=== PATIENT | male | born 1985 | race Caucasian/White ===

== ENCOUNTER → 2018-11-06 09:25 | Outpatient (CLI) | payer OTHER, SELFPAY ==
--- NOTE | 2018-11-06 | DI.ECHO.S_ITS ---
[place] +---------+ [facility] +---------+ : : [address] : : : : [id number] : : : : Phone: [phone] Echocardiogram Report + + :Name: ZACHERY CRAIG Study Date: 11/06/2018 Height: 74 in : :[facility] Weight: 260 lb : : Gender: Male BSA: 2.4 m2 : :: 1985 Age: 33 yrs BP: 104/70 mmHg: :Reason For Study: IRREGULAR HEART BEAT : : Performed By: Johanna Porter : :Referring: HARSH STILES : + + Interpretation Summary The ejection fraction is estimated to be 50-55%. Left ventricular wall motion is normal. Both atria are normal in size. There is trace mitral regurgitation. There is a trace or physiologic amount of pulmonic regurgitation. There is a small color signal seen in the pulmonary artery during diastole which could represent a small PDA (image 30). Procedure: A two-dimensional transthoracic echocardiogram with color flow and Doppler was performed. The study quality was technically good. There is no prior echocardiogram noted for this patient. The patient was in sinus bradycardia with heart rates between 48-58 bpm during the exam. Left Ventricle: The left ventricle is normal in size. There is normal left ventricular wall thickness. There is no ventricular septal defect visualized. The ejection fraction is estimated to be 50-55%. Left ventricular wall motion is normal. Diastolic parameters suggest probable normal left ventricular diastolic function and normal filling pressures. Right Ventricle: The right ventricle is normal in size and function. Atria: Both atria are normal in size. There is no Doppler evidence for an interatrial shunt. Mitral Valve: The mitral valve is normal in structure and function. There is trace mitral regurgitation. Aortic Valve: The aortic valve is normal in structure and function. No aortic regurgitation is present. Tricuspid Valve: The tricuspid valve is normal in structure and function. There is a trace or physiologic amount of tricuspid regurgitation. Pulmonary artery pressures cannot be estimated because of the lack of a measurable TR jet velocity. Pulmonic Valve: The pulmonic valve is normal in structure and function. There is a trace or physiologic amount of pulmonic regurgitation. Great Vessels: The aortic root is normal size. The ascending aorta is normal in size. The aortic arch is normal in size. There is a small color signal seen in the pulmonary artery during diastole which could represent a small PDA (image 30). The IVC is of normal diameter and collapses greater than 50% with a sniff. This suggests a low right atrial pressure of 3 mm Hg. Pericardium/ Pleura There is no pericardial effusion. MMode/2D Measurements & Calculations LVIDd: 5.6 cm LVOT diam: 2.3 cm LVIDs: 4.1 cm Ao root diam: 3.3 cm FS: 25.8 % Aortic Jxn: 2.3 cm EPSS: 0.39 cm asc Aorta Diam: 2.8 cm IVSd: 0.84 cm Ao Arch Diam (Prox Trans): 2.9 cm LVPWd: 0.67 cm LV roy. diameter/BSA (cm/m^2): 2.3 LV sys. diameter/BSA (cm/m^2): 1.7 LA A2 area: 16.9 cm2 RA long axis: 4.8 cm LA A4 area: 21.9 cm2 RA area: 15.1 cm2 LA length (vol): 5.0 cm RA vol: 39.8 ml LA vol: 63.4 ml RA : 16.4 ml/m2 LA vol index: 26.1 ml/m2 IVC diam: 1.4 cm RVD2 (mid): 3.3 cm TAPSE: 2.0 cm Doppler Measurements & Calculations Ao V2 max: 110.3 cm/sec LVOT Max Bk: 88.9 cm/sec Ao V2 mean: 78.1 cm/sec LV V1 max P.2 mmHg Ao max P.9 mmHg LV V1 VTI: 18.6 cm Ao mean P.7 mmHg EJFF(I,D): 3.0 cm2 Ao V2 VTI: 26.0 cm JEFF(V,D): 3.4 cm2 sev ratio: 0.72 JEFF indexed to BSA (cm^2/m^2): 1.2 MV E max bk: 59.5 cm/sec PA V2 max: 77.2 cm/sec MV A max bk: 31.4 cm/sec PA V2 mean: 52.4 cm/sec MV E/A: 1.9 PA mean P.2 mmHg Med Peak E' Bk: 10.9 cm/sec PA Accel Time: 0.16 sec E/E' med: 5.4 Lat Peak E' Bk: 16.8 cm/sec E/E' lat: 3.5 E/e' average: 4.5 MV dec time: 0.22 sec MV P1/2t: 66.4 msec MV P1/2t max bk: 60.1 cm/sec SV(LVOT): 78.9 ml MVA(P1/2t): 3.3 cm2 Reading Physician:02:04 PM
== END ==
PROVIDERS: Visit Provider Physician Assistant
DX: I49.9 Cardiac arrhythmia, unspecified (principal)
CPT/HCPCS: 93306

== ENCOUNTER 2019-06-02 11:51 | Emergency (ER) | payer OTHER, SELFPAY ==
[2019-06-02 11:54] VITALS: BP 125/85; PULSE 85; RESP 22; TEMP 36.8; O2SAT 99; BMI 31.2
--- NOTE | 2019-06-02 12:35 | PC.NURSE ---
Door is open to palacio and lights are on in room. Pt is speaking with provider.
[2019-06-02 12:38] LABS: Bacteria Urine None Seen; RBC Urine None Seen (0-5/HPF)
[2019-06-02 12:42] LABS: Appearance Urine UA CLEAR; Bilirubin Urine UA NEGATIVE (NEGATIVE); Color Urine UA YELLOW; Glucose Urine UA NEGATIVE (Negative); Ketones Urine UA NEGATIVE (NEGATIVE); Leukocyte Esterase Urine UA NEGATIVE (NEGATIVE); Nitrite Urine UA NEGATIVE (Negative); Occult Blood Urine UA NEGATIVE (Negative); Protein Urine UA NEGATIVE (Negative); Specific Gravity Urine UA 1.015 (1.000-1.035); Urobilinogen Urine UA 0.2 E.U./dL (0.2)
[2019-06-02 12:42] LABS: Add Manual Diff / Slide Review NO; Basophils Absolute Auto 0 /uL (0-100); Basophils Percent Auto 0.7 % (0-2); Eosinophils Absolute Auto 300 /uL (0-450); Eosinophils Percent Auto 4.6 % (2-4); Hematocrit 40.9 % (41-53); Hemoglobin 14.1 g/dL (13.5-17.5); Lymphocytes Absolute Auto 2100 /uL (1100-4500); Lymphocytes Percent Auto 35.1 % (25-40); Mean Corpuscular HGB Conc 34.6 % (30-36); Mean Corpuscular Hemoglobin 30.3 PG (26-34); Mean Corpuscular Volume 87.6 fL (80-100); Monocytes Absolute Auto 500 /uL (0-900); Monocytes Percent Auto 8.8 % (3-14); Neutrophils Absolute Auto 3000 /uL (1500-7000); Neutrophils Percent Auto 50.8 % (50-75); Platelet Count 221 X10^3/uL (150-400); Red Blood Cell Count 4.66 X10^6/uL (4.5-5.9); Red Cell Distribution Width 13.5 % (11.6-14.8); White Blood Cell Count 5.9 X10^3/uL (4.5-11.0)
[2019-06-02 12:48] LABS: Culture Indicated Urine Cult Not Indicated; Squamous Epithelial Cell Urine 0-1 /HPF (0-5/HPF); WBC Urine 0-1/HPF (0-5/HPF)
[2019-06-02 12:49] LABS: Urine Amphetamines Negative (Negative); Urine Barbiturates Negative (Negative); Urine Benzodiazepines Negative (Negative); Urine Cocaine Negative (Negative); Urine MDMA Negative (Negative); Urine Methadone Negative (Negative); Urine Methamphetamines Negative (Negative); Urine Morphine/Opi cutoff 2000 Negative (Negative); Urine Oxycodone Negative (Negative); Urine Phencyclidine Negative (Negative); Urine Tetrahydrocannabinol Negative (Negative); Urine Tricyclic Antidepressant Negative (Negative)
[2019-06-02] MEDS: LORazepam 0.5 MG TABLET 1 MG PO ×2 (12:52→18:50)
[2019-06-02 13:00] LABS: Alanine Aminotransferase 51 IU/L (21-72); Albumin 4.5 g/dL (3.5-5.0); Albumin Globulin Ratio 1.7 (1.0-2.8); Alkaline Phosphatase 56 U/L (38-126); Aspartate Aminotransferase 27 IU/L (17-59); BUN Creatinine Ratio 12.5 (6-22); Bilirubin Total 0.4 mg/dL (0.2-1.3); Blood Urea Nitrogen 15 mg/dL (9-20); Calcium 9.4 mg/dL (8.4-10.2); Carbon Dioxide 24 mmol/L (22-32); Chloride 106 mmol/L (98-107); Estimated Glomerular Filt Rate > 60.0 mL/min (>60); Ethanol (ETOH) < 10 mg/dL; Globulin 2.7 g/dL (1.7-4.1); Glucose 105 mg/dL (70-100); HEMOLYSIS < 15 (0-50); Sodium 143 mmol/L (137-145); Total Protein 7.2 g/dL (6.3-8.2)
--- NOTE | 2019-06-02 13:00 | ED.PSYCH ---
HPI - Psych <MALACHI Kern - Last Filed: 06/02/19 19:36> General Chief Complaint: Psychiatric Symptoms Stated Complaint: SUICIDAL THOUGHTS Time Seen by Provider: 06/02/19 12:22 Source: patient Mode of arrival: ambulatory Limitations: no limitations History of Present Illness HPI Narrative: The patient is a 34-year-old male former smoker with history of PTSD who presents with a chief complaint of suicidal ideations. He states he is very stressed at home right now, with marital issues. He is also having a medical discharge from the [facility] 3 years early, which she states is due to his PTSD. He states he has history of suicidal ideations, and the previous cutting attempt. He states that today he took a kitchen knife and then threatened to hurt himself with it. He is concerned that he hurt his when he closed the door on her face. He denies any illicit drugs, marijuana or tobacco use. He states he is on several psychiatric medications, but is not exactly sure what he is taking. He states that rather than hurt himself today, he called his counselor who directed him to come to the emergency department. Related Data Home Medications Medication Instructions Recorded Confirmed naproxen sodium 220 mg PO PRN PRN #0 12/30/11 06/02/19 sertraline [Zoloft] 150 mg PO BEDTIME #2 11/11/17 06/02/19 omeprazole 20 mg PO DAILY #90 01/02/18 06/02/19 aspirin 325 mg PO DAILY 06/02/19 bupropion HCl 150 mg PO DAILY 06/02/19 06/02/19 prazosin 2 mg PO DAILY 06/02/19 trazodone 25 mg PO DAILY 06/02/19 06/02/19 Allergies Allergy/AdvReac Type Severity Reaction Status Date / Time ibuprofen Allergy Severe Anaphylaxis Verified 06/02/19 12:37 Review of Systems <MALACHI Kern - Last Filed: 06/02/19 19:36> Review of Systems GENERAL: Denies chills, fatigue, malaise, fever, sweats. HEENT: Denies sinus pain, ear pain, sore throat, difficulty swallowing, dizziness. RESPIRATORY: Denies dyspnea, cough, wheezing, hemoptysis, sputum. CARDIOVASCULAR: Denies chest pain, palpitations, orthopnea, edema, GASTROINTESTINAL: Denies nausea, vomiting, abdominal pain, diarrhea, constipation, melena. : Denies dysuria, frequency, incontinence, hematuria, urinary retention. MUSCULOSKELETAL: denies weakness, joint pain, or bony pain SKIN: Denies rash, skin lesions, or other NEUROLOGIC: Denies weakness, headache, numbness, change in speech, confusion, seizures, incoordination. PSYCHIATRIC: See HPI 12 point review of systems is negative except for those stated above PFSH <MALACHI Kern - Last Filed: 06/02/19 19:36> Medical History History of suicide attempt (Acute) PTSD (post-traumatic stress disorder) (Acute) Social History Smoking Status: Former smoker Social History Smoking Status: Former smoker Exam <MALACHI Kern - Last Filed: 06/02/19 19:36> Narrative Exam Narrative: GENERAL: This is a well-nourished, well-developed patient, teary, appears anxious. HEAD: Atraumatic. Normocephalic. No temporal or scalp tenderness. EYES: Pupils equal round and reactive. Extraocular motions intact. No scleral icterus. No injection or drainage. ENT: Nose without bleeding, purulent drainage or septal hematoma. Throat without erythema, tonsillar hypertrophy or exudate. Uvula midline. Airway patent. NECK: Trachea midline. No JVD or lymphadenopathy. Supple, nontender, no meningeal signs. CARDIOVASCULAR: Regular rate and rhythm without murmurs, gallops, or rubs. RESPIRATORY: Clear to auscultation. Breath sounds equal bilaterally. No wheezes, rales, or rhonchi. GASTROINTESTINAL: Abdomen soft, non-tender, nondistended. No hepato-splenomegaly, or palpable masses. No guarding. EXTREMITIES: No clubbing, cyanosis, or edema. No joint tenderness, effusion, or edema noted. BACK: Nontender without deformity or crepitance. No flank tenderness. NEURO: AOx3. Teary. Covering face with sheet. SKIN: No rash or erythema. Initial Vital Signs Initial Vital Signs: Vital Signs Temperature 98.3 F 06/02/19 11:54 Pulse Rate 85 06/02/19 11:54 Respiratory Rate 22 06/02/19 11:54 Blood Pressure 125/85 06/02/19 11:54 Pulse Oximetry 99 06/02/19 11:54 <Christine Ogden MD - Last Filed: 06/02/19 19:54> Initial Vital Signs Initial Vital Signs: Vital Signs Temperature 98.3 F 06/02/19 11:54 Pulse Rate 85 06/02/19 11:54 Respiratory Rate 22 06/02/19 11:54 Blood Pressure 125/85 06/02/19 11:54 Pulse Oximetry 99 06/02/19 11:54 Course <MALACHI Kern - Last Filed: 06/02/19 19:36> Orders Ordered: ED Orders 06/02/19 12:15 Urinalysis and Microscopic Stat Urine Drug Screen, Rapid Stat 06/02/19 12:22 Acetaminophen Stat Complete Blood Count AUTO DIFF Stat Comprehensive Metabolic Panel Stat Ethanol (ETOH) Stat Salicylate Stat Thyroid Stimulating Hormone Stat 06/02/19 12:31 Consult to Marketing Budget Analyst Stat Refer to [facility] Urgent Discontinued Medications Acetaminophen (Tylenol) 975 mg PO NOW ONE Stop: 06/02/19 18:11 Last Admin: 06/02/19 18:50 Dose: 975 mg Lorazepam (Ativan) 1 mg PO NOW ONE Stop: 06/02/19 12:33 Last Admin: 06/02/19 12:52 Dose: 1 mg Lorazepam (Ativan) 1 mg PO NOW ONE Stop: 06/02/19 18:43 Last Admin: 06/02/19 18:50 Dose: 1 mg Vital Signs - 8 hr 06/02/19 16:00 Temperature 97.2 F L Pulse Rate 84 Respiratory Rate 18 Blood Pressure [Right Arm] 107/68 <Christine Ogden MD - Last Filed: 06/02/19 19:54> Orders Ordered: ED Orders 06/02/19 12:15 Urinalysis and Microscopic Stat Urine Drug Screen, Rapid Stat 06/02/19 12:22 Acetaminophen Stat Complete Blood Count AUTO DIFF Stat Comprehensive Metabolic Panel Stat Ethanol (ETOH) Stat Salicylate Stat Thyroid Stimulating Hormone Stat 06/02/19 12:31 Consult to Marketing Budget Analyst Stat Refer to [facility] Urgent Discontinued Medications Acetaminophen (Tylenol) 975 mg PO NOW ONE Stop: 06/02/19 18:11 Last Admin: 06/02/19 18:50 Dose: 975 mg Lorazepam (Ativan) 1 mg PO NOW ONE Stop: 06/02/19 12:33 Last Admin: 06/02/19 12:52 Dose: 1 mg Lorazepam (Ativan) 1 mg PO NOW ONE Stop: 06/02/19 18:43 Last Admin: 06/02/19 18:50 Dose: 1 mg Vital Signs - 8 hr 06/02/19 16:00 Temperature 97.2 F L Pulse Rate 84 Respiratory Rate 18 Blood Pressure [Right Arm] 107/68 MDM - Psych <CARLEE Kern-BC - Last Filed: 06/02/19 19:36> Lab Data Result diagrams: 06/02/19 12:22 06/02/19 12:22 Lab Results 06/02/19 06/02/19 06/02/19 Range/Units 12:15 12:15 12:22 WBC 5.9 (4.5-11.0) X10^3/uL RBC 4.66 (4.5-5.9) X10^6/uL Hgb 14.1 (13.5-17.5) g/dL Hct 40.9 L (41-53) % MCV 87.6 (80-100) fL MCH 30.3 (26-34) PG MCHC 34.6 (30-36) % RDW 13.5 (11.6-14.8) % Plt Count 221 (150-400) X10^3/uL Neut % (Auto) 50.8 (50-75) % Lymph % (Auto) 35.1 (25-40) % [place] % (Auto) 8.8 (3-14) % Eos % (Auto) 4.6 H (2-4) % Baso % (Auto) 0.7 (0-2) % Neut # (Auto) 3000 (8948-3633) /uL Lymph # (Auto) 2100 (9124-9623) /uL [place] # (Auto) 500 (0-900) /uL Eos # (Auto) 300 (0-450) /uL Baso # (Auto) 0 (0-100) /uL Sodium (137-145) mmol/L Potassium (3.4-5.1) mmol/L Chloride (98-107) mmol/L Carbon Dioxide (22-32) mmol/L BUN (9-20) mg/dL Creatinine (0.66-1.25) mg/dL Estimated GFR (>60) mL/min BUN/Creatinine Ratio (6-22) Glucose (70-100) mg/dL Calcium (8.4-10.2) mg/dL Total Bilirubin (0.2-1.3) mg/dL AST (17-59) IU/L ALT (21-72) IU/L Alkaline Phosphatase (38-126) U/L Total Protein (6.3-8.2) g/dL Albumin (3.5-5.0) g/dL Globulin (1.7-4.1) g/dL Albumin/Globulin Ratio (1.0-2.8) TSH (0.47-4.68) uIU/mL Urine Color Yellow Urine Appearance Clear Urine pH 7.0 (4.5-8.0) Ur Specific Reagan 1.015 (1.000-1.035) Urine Protein Negative (Negative) Urine Glucose (UA) Negative (Negative) g/dL Urine Ketones Negative (NEGATIVE) Urine Occult Blood Negative (Negative) Urine Nitrate Negative (Negative) Urine Bilirubin Negative (NEGATIVE) Urine Urobilinogen 0.2 (0.2) E.U./dL Ur Leukocyte Esterase Negative (NEGATIVE) Urine RBC None seen (0-5/HPF) Urine WBC 0-1/hpf (0-5/HPF) Ur Squamous Epith Cells 0-1 /hpf (0-5/HPF) Urine Bacteria None seen (None) Ur Culture Indicated? Cult not indicated Salicylates (<20) mg/dL Urine Opiates Screen Negative (Negative) Ur Oxycodone Screen Negative (Negative) Urine Methadone Screen Negative (Negative) Acetaminophen (10-30) ug/mL Ur Barbiturates Screen Negative (Negative) U Tricyclic Antidepress Negative (Negative) Ur Phencyclidine Scrn Negative (Negative) Ur Amphetamines Screen Negative (Negative) U Methamphetamines Scrn Negative (Negative) Ur MDMA Scrn (Ecstasy) Negative (Negative) U Benzodiazepines Scrn Negative (Negative) Urine Cocaine Screen Negative (Negative) U Marijuana (THC) Screen Negative (Negative) Ethyl Alcohol ( - 10) mg/dL 06/02/19 06/02/19 06/02/19 Range/Units 12:22 12:22 12:22 WBC (4.5-11.0) X10^3/uL RBC (4.5-5.9) X10^6/uL Hgb (13.5-17.5) g/dL Hct (41-53) % MCV (80-100) fL MCH (26-34) PG MCHC (30-36) % RDW (11.6-14.8) % Plt Count (150-400) X10^3/uL Neut % (Auto) (50-75) % Lymph % (Auto) (25-40) % [place] % (Auto) (3-14) % Eos % (Auto) (2-4) % Baso % (Auto) (0-2) % Neut # (Auto) (0475-0669) /uL Lymph # (Auto) (6922-7742) /uL [place] # (Auto) (0-900) /uL Eos # (Auto) (0-450) /uL Baso # (Auto) (0-100) /uL Sodium 143 (137-145) mmol/L Potassium 4.0 (3.4-5.1) mmol/L Chloride 106 (98-107) mmol/L Carbon Dioxide 24 (22-32) mmol/L BUN 15 (9-20) mg/dL Creatinine 1.20 (0.66-1.25) mg/dL Estimated GFR > 60.0 (>60) mL/min BUN/Creatinine Ratio 12.5 (6-22) Glucose 105 H (70-100) mg/dL Calcium 9.4 (8.4-10.2) mg/dL Total Bilirubin 0.4 (0.2-1.3) mg/dL AST 27 (17-59) IU/L ALT 51 (21-72) IU/L Alkaline Phosphatase 56 (38-126) U/L Total Protein 7.2 (6.3-8.2) g/dL Albumin 4.5 (3.5-5.0) g/dL Globulin 2.7 (1.7-4.1) g/dL Albumin/Globulin Ratio 1.7 (1.0-2.8) TSH 4.18 (0.47-4.68) uIU/mL Urine Color Urine Appearance Urine pH (4.5-8.0) Ur Specific Reagan (1.000-1.035) Urine Protein (Negative) Urine Glucose (UA) (Negative) g/dL Urine Ketones (NEGATIVE) Urine Occult Blood (Negative) Urine Nitrate (Negative) Urine Bilirubin (NEGATIVE) Urine Urobilinogen (0.2) E.U./dL Ur Leukocyte Esterase (NEGATIVE) Urine RBC (0-5/HPF) Urine WBC (0-5/HPF) Ur Squamous Epith Cells (0-5/HPF) Urine Bacteria (None) Ur Culture Indicated? Salicylates < 1.0 (<20) mg/dL Urine Opiates Screen (Negative) Ur Oxycodone Screen (Negative) Urine Methadone Screen (Negative) Acetaminophen < 10 L (10-30) ug/mL Ur Barbiturates Screen (Negative) U Tricyclic Antidepress (Negative) Ur Phencyclidine Scrn (Negative) Ur Amphetamines Screen (Negative) U Methamphetamines Scrn (Negative) Ur MDMA Scrn (Ecstasy) (Negative) U Benzodiazepines Scrn (Negative) Urine Cocaine Screen (Negative) U Marijuana (THC) Screen (Negative) Ethyl Alcohol < 10 ( - 10) mg/dL MDM Narrative Medical decision making narrative: The patient is a 34-year-old male with history of suicidal ideations and suicidal behavior who presents with a chief complaint of suicidal ideations and thoughts of self-harm. He was seen and evaluated by social work. Given his history of PTSD, suicide attempts etc, I am concerned about his behavior. He was medically cleared. Social work was able to secure the patient placement at [facility] the patient was accepted by . The patient behaves well in the emergency department, and suicide precautions were maintained. The patient was transferred to EMS at 7:30 p.m.. The patient throughout denied any homicidal ideations or homicidal plan. He did receive a few doses of Ativan in the ER. <Christine Ogden MD - Last Filed: 06/02/19 19:54> Lab Data Lab Results 06/02/19 06/02/19 06/02/19 Range/Units 12:15 12:15 12:22 WBC 5.9 (4.5-11.0) X10^3/uL RBC 4.66 (4.5-5.9) X10^6/uL Hgb 14.1 (13.5-17.5) g/dL Hct 40.9 L (41-53) % MCV 87.6 (80-100) fL MCH 30.3 (26-34) PG MCHC 34.6 (30-36) % RDW 13.5 (11.6-14.8) % Plt Count 221 (150-400) X10^3/uL Neut % (Auto) 50.8 (50-75) % Lymph % (Auto) 35.1 (25-40) % [place] % (Auto) 8.8 (3-14) % Eos % (Auto) 4.6 H (2-4) % Baso % (Auto) 0.7 (0-2) % Neut # (Auto) 3000 (8986-3500) /uL Lymph # (Auto) 2100 (2496-3533) /uL [place] # (Auto) 500 (0-900) /uL Eos # (Auto) 300 (0-450) /uL Baso # (Auto) 0 (0-100) /uL Sodium (137-145) mmol/L Potassium (3.4-5.1) mmol/L Chloride (98-107) mmol/L Carbon Dioxide (22-32) mmol/L BUN (9-20) mg/dL Creatinine (0.66-1.25) mg/dL Estimated GFR (>60) mL/min BUN/Creatinine Ratio (6-22) Glucose (70-100) mg/dL Calcium (8.4-10.2) mg/dL Total Bilirubin (0.2-1.3) mg/dL AST (17-59) IU/L ALT (21-72) IU/L Alkaline Phosphatase (38-126) U/L Total Protein (6.3-8.2) g/dL Albumin (3.5-5.0) g/dL Globulin (1.7-4.1) g/dL Albumin/Globulin Ratio (1.0-2.8) TSH (0.47-4.68) uIU/mL Urine Color Yellow Urine Appearance Clear Urine pH 7.0 (4.5-8.0) Ur Specific Reagan 1.015 (1.000-1.035) Urine Protein Negative (Negative) Urine Glucose (UA) Negative (Negative) g/dL Urine Ketones Negative (NEGATIVE) Urine Occult Blood Negative (Negative) Urine Nitrate Negative (Negative) Urine Bilirubin Negative (NEGATIVE) Urine Urobilinogen 0.2 (0.2) E.U./dL Ur Leukocyte Esterase Negative (NEGATIVE) Urine RBC None seen (0-5/HPF) Urine WBC 0-1/hpf (0-5/HPF) Ur Squamous Epith Cells 0-1 /hpf (0-5/HPF) Urine Bacteria None seen (None) Ur Culture Indicated? Cult not indicated Salicylates (<20) mg/dL Urine Opiates Screen Negative (Negative) Ur Oxycodone Screen Negative (Negative) Urine Methadone Screen Negative (Negative) Acetaminophen (10-30) ug/mL Ur Barbiturates Screen Negative (Negative) U Tricyclic Antidepress Negative (Negative) Ur Phencyclidine Scrn Negative (Negative) Ur Amphetamines Screen Negative (Negative) U Methamphetamines Scrn Negative (Negative) Ur MDMA Scrn (Ecstasy) Negative (Negative) U Benzodiazepines Scrn Negative (Negative) Urine Cocaine Screen Negative (Negative) U Marijuana (THC) Screen Negative (Negative) Ethyl Alcohol ( - 10) mg/dL 06/02/19 06/02/19 06/02/19 Range/Units 12:22 12:22 12:22 WBC (4.5-11.0) X10^3/uL RBC (4.5-5.9) X10^6/uL Hgb (13.5-17.5) g/dL Hct (41-53) % MCV (80-100) fL MCH (26-34) PG MCHC (30-36) % RDW (11.6-14.8) % Plt Count (150-400) X10^3/uL Neut % (Auto) (50-75) % Lymph % (Auto) (25-40) % [place] % (Auto) (3-14) % Eos % (Auto) (2-4) % Baso % (Auto) (0-2) % Neut # (Auto) (4266-8398) /uL Lymph # (Auto) (7156-0825) /uL [place] # (Auto) (0-900) /uL Eos # (Auto) (0-450) /uL Baso # (Auto) (0-100) /uL Sodium 143 (137-145) mmol/L Potassium 4.0 (3.4-5.1) mmol/L Chloride 106 (98-107) mmol/L Carbon Dioxide 24 (22-32) mmol/L BUN 15 (9-20) mg/dL Creatinine 1.20 (0.66-1.25) mg/dL Estimated GFR > 60.0 (>60) mL/min BUN/Creatinine Ratio 12.5 (6-22) Glucose 105 H (70-100) mg/dL Calcium 9.4 (8.4-10.2) mg/dL Total Bilirubin 0.4 (0.2-1.3) mg/dL AST 27 (17-59) IU/L ALT 51 (21-72) IU/L Alkaline Phosphatase 56 (38-126) U/L Total Protein 7.2 (6.3-8.2) g/dL Albumin 4.5 (3.5-5.0) g/dL Globulin 2.7 (1.7-4.1) g/dL Albumin/Globulin Ratio 1.7 (1.0-2.8) TSH 4.18 (0.47-4.68) uIU/mL Urine Color Urine Appearance Urine pH (4.5-8.0) Ur Specific Reagan (1.000-1.035) Urine Protein (Negative) Urine Glucose (UA) (Negative) g/dL Urine Ketones (NEGATIVE) Urine Occult Blood (Negative) Urine Nitrate (Negative) Urine Bilirubin (NEGATIVE) Urine Urobilinogen (0.2) E.U./dL Ur Leukocyte Esterase (NEGATIVE) Urine RBC (0-5/HPF) Urine WBC (0-5/HPF) Ur Squamous Epith Cells (0-5/HPF) Urine Bacteria (None) Ur Culture Indicated? Salicylates < 1.0 (<20) mg/dL Urine Opiates Screen (Negative) Ur Oxycodone Screen (Negative) Urine Methadone Screen (Negative) Acetaminophen < 10 L (10-30) ug/mL Ur Barbiturates Screen (Negative) U Tricyclic Antidepress (Negative) Ur Phencyclidine Scrn (Negative) Ur Amphetamines Screen (Negative) U Methamphetamines Scrn (Negative) Ur MDMA Scrn (Ecstasy) (Negative) U Benzodiazepines Scrn (Negative) Urine Cocaine Screen (Negative) U Marijuana (THC) Screen (Negative) Ethyl Alcohol < 10 ( - 10) mg/dL Discharge Plan Departure Prescriptions: No Action naproxen sodium 220 MG tablet 220 mg PO PRN PRN (Reason: pain) Qty: 0 RF: 0 sertraline [Zoloft] 100 MG tablet 150 mg PO BEDTIME Qty: 2 RF: 0 omeprazole 20 MG capsule,delayed release(DR/EC) 20 mg PO DAILY Qty: 90 RF: 0 trazodone 50 mg tablet 25 mg PO DAILY RF: 0 aspirin 325 mg tablet,delayed release (DR/EC) 325 mg PO DAILY RF: 0 prazosin 2 mg capsule 2 mg PO DAILY RF: 0 bupropion HCl 150 mg tablet extended release 24 hr 150 mg PO DAILY RF: 0
--- NOTE | 2019-06-02 13:01 | PC.NURSE ---
pt resting, door is open and lights are on.
[2019-06-02 13:02] LABS: Acetaminophen < 10 ug/mL (10-30); Salicylate < 1.0 mg/dL (<20)
[2019-06-02 13:30] LABS: Thyroid Stimulating Hormone 4.18 uIU/mL (0.47-4.68)
--- NOTE | 2019-06-02 13:30 | PC.NURSE ---
pt resting in bed, door is open and lights are on.
--- NOTE | 2019-06-02 13:42 | PC.NURSE ---
MARTIN in room speaking with pt.
--- NOTE | 2019-06-02 13:51 | PC.NURSE ---
MEASUREMENT DEPARTMENT CHIEF CLERK in room spreaking with pt.
--- NOTE | 2019-06-02 14:01 | PC.NURSE ---
pt resting on bed, door is open to hallway and lights on in room.
--- NOTE | 2019-06-02 14:13 | CM.SWNOTE ---
MH Assessment Patient is a 34 year old male who was admitted to [facility] ED on 06/02/19 for Suicidal Ideation. Pt has [employer] for insurance and his PCP is Dr. Gonzalez on the [facility]. EMR was reviewed. Per MD, pt is tearful and anxious and required some Ativan and has been calm and cooperative with care but endorsing suicidal ideation still. SW met bedside with pt in ED room 13 and pt was laying on the bed with sheet over his head but when SW arrived he removed the sheet and participated in goal directed discussion. Pt was alert and oriented x3, with flat affect, and occasional eye contact with breaks. Pt's speech was soft and not pressured and pt denies any visual or auditory disturbances and does not seem to be reacting to internal stimuli. Pt appears well kept but does endorse chronic sleep disturbances with regular nightmares but no change in eating habits. Pt continues to endorse suicidal ideations and does not feel safe to d/c to the community at this time. MH hx: Patient states that he attributes mental health depression and anxiety to his formative years around age 13 but without any treatment or dx and then attempted suicide at age 18 yr that required medical stability for cutting and he received a Psych Eval but no inpt tx at that time. Pt states since age 18 he has suppressed many of his feelings and experiences and attempted to function normally but that about 3 years ago when he was 31 yrs old he could not suppress his mental health and emotions and began to experience intense feelings of depression, anxiety, PTSD symptoms. Pt states today he threatened suicidal plan of cutting himself with a knife he grabbed from the kitchen. MH tx: Patient denies any hx of Inpt MH tx but confirms that he has established outpt MH tx over the past couple years through the [facility] and feels that he has been functioning well until the last few months. Pt has been seeing an outpt counselor at the [facility] once a month for ongoing support. Pt also sees a sleep doctor in [place] to help attempt to med manage his PTSD nightmares and sleep issues. Pt currently prescribed Prazocin, Zoloft, and trazodone. CD hx: Pt denies, UDS came back negative CD tx: Pt denies Legal: Pt denies Social/Family: Patient is with 2 teenage twin boys, one of which has dx of Aspergers and has been involved in Inpt and outpt MH tx for behavioral outbursts. Pt and spouse have had increased marital stress regarding finances, pt's Mental health issues, and work and spouse recently threatened possible divorce. Pt states that he was just given his discharge date from the [facility] (3 years early due to PTSD issues) and this has been very stressful on him and the family. Pt's last day of work is set for 2 weeks from today and official release is Jul 2019. Plan: Due to pt's hx of suicidal ideation and attempt and multiple high risk factors including work, financial, marital, and family and his current inability to confidently contract for safety then pt is very risky for discharge directly back to the community. SW discussed possible options regarding outpt and Inpt mental health tx for stabilization and med management and pt is currently agreeable to voluntary placement if bed can be found although he is worried about his family and job if he is involved in Inpt Tx. Pt seems very articulate and well versed in mental health tx as he has participated in his teenage son's mental health treatment as well as helped get friends in the to Inpt Tx. Pt willing for SW to attempt to find Voluntary MH Inpt tx bed at this time as he feels high concern with his safety going home today. LISA updated who is agreeable to this plan and feels Inpt MH tx needed at this time for stabilization. MARTIN Dodson
--- NOTE | 2019-06-02 14:15 | PC.NURSE ---
pt used bathroom and now laying on bed, door open and lights on in room.
--- NOTE | 2019-06-02 14:27 | PC.NURSE ---
pt requested magazines to read, stated he needed something to keep him occupied
--- NOTE | 2019-06-02 14:37 | PC.NURSE ---
pt laying on bed reading a magazine. door opened
--- NOTE | 2019-06-02 14:50 | PC.NURSE ---
pt reading magazine. Door opened
--- NOTE | 2019-06-02 15:02 | PC.NURSE ---
pt sleeping. door opened
--- NOTE | 2019-06-02 15:09 | PC.NURSE ---
patient resting in bed
--- NOTE | 2019-06-02 15:35 | PC.NURSE ---
patient resting in bed
[2019-06-02 16:00] VITALS: BP 107/68; PULSE 84; RESP 18; TEMP 36.2
--- NOTE | 2019-06-02 16:00 | PC.NURSE ---
patient awake ,resting in bed
--- NOTE | 2019-06-02 16:23 | PC.NURSE ---
Up to the bathroom with calmly and friendly behavior. Offered water and snacks, patient refused. Back in bed in sitting position, reading magazine at this time.
--- NOTE | 2019-06-02 16:38 | PC.NURSE ---
Patient talking with social service liaison at this time.
--- NOTE | 2019-06-02 16:50 | PC.NURSE ---
pt sitting on bed, door is open to hallway and lights are on in room.
--- NOTE | 2019-06-02 17:16 | PC.NURSE ---
Patient resting in bed.
--- NOTE | 2019-06-02 17:31 | PC.NURSE ---
Just talked to social worker assistant, pt resting lying down.
--- NOTE | 2019-06-02 17:34 | CM.SWNOTE ---
Addendum entered by MARTIN Braxton 06/02/19 18:42: DIAGNOSTIC ASSISTANT learned that active must go through [facility]. Transfer Center # is [phone]. [facility] is [address] [place] [id number]. Pt has been accepted and will be transported by ambulance. Accepting doctor is Noemi Davis MD Original Note: ED DIAGNOSTIC ASSISTANT Note Bed Search: DIAGNOSTIC ASSISTANT called [facility] to obtain list of bed availability. Faxed info to [facility] and [facility]. [facility] only had an opening for dual diagnosis. [facility] is full. DIAGNOSTIC ASSISTANT was initially informed to contact [facility] services, but since pt is active he does not qualify for VA benefits. Will continue bed search while awaiting responses to reviews.
--- NOTE | 2019-06-02 17:46 | PC.NURSE ---
Awake but lying down in bed quietly.
--- NOTE | 2019-06-02 18:03 | PC.NURSE ---
Patient resting in bed.
--- NOTE | 2019-06-02 18:15 | PC.NURSE ---
pt resting on bed, gave him water in paper cup.
--- NOTE | 2019-06-02 18:30 | PC.NURSE ---
PT relaxing on bed.
[2019-06-02] MEDS: ACETAMINOPHEN 325 MG TABLET 975 MG PO (18:50)
--- NOTE | 2019-06-02 18:50 | PC.NURSE ---
Patient sitting in bed waiting patiently for the transfort.
--- NOTE | 2019-06-02 19:00 | PC.NURSE ---
Patient up and made a phone call to her .
--- NOTE | 2019-06-02 19:12 | PC.NURSE ---
Patient up to the bathroom and back to bed. Sitting calmly waiting for transfort.
[2019-06-02 19:30] VITALS: BP 137/78; PULSE 66; RESP 16; O2SAT 96
--- NOTE | 2019-06-02 19:34 | PC.NURSE ---
transport arrived, patient left.
== END 2019-06-02 19:40 ==
PROVIDERS: Emergency Provider Nurse Practitioner Family
DX: R45.851 Suicidal ideations (principal)
CPT/HCPCS: 36415; 80053; 80305; 80320; 80329; 81001; 84443; 85025; 99283; G0480